=== PATIENT | male | born 1995 | race Two or more races ===

== ENCOUNTER 2019-03-05 19:45 | Emergency (ER) | payer SELFPAY ==
[2019-03-05] MEDS ORDERED: SODIUM CHLORIDE 1,000 ML IV STA (20:34)
--- NOTE | 2019-03-05 20:44 | PDOC ---
History of Present Illness - General Chief Complaint: Syncope/Near Syncope Stated Complaint: FALL/SYNCOPE Time Seen by Provider: 03/05/19 20:03 History Source: Patient, Family Exam Limitations: No Limitations - History of Present Illness Initial Comments: 03/05/19 20:38 Misael Willis is a 23M with no significant PMH presenting with syncope. 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 Reports feeling dizzy, and does not remember much after that until arriving at ED. Per EMS, patient's coworkers saw him unstable on his feet, did not hit head. Patient does not report prodromal sx, denies N/V, constipation/ diarrhea, chest pain/palpitations, SOB, fever, abdominal pain. Denies head injury/pain but has headache, no other injury on body. Has had previous episodes heat-related syncope. Reports he has "electrical problems with brain," but does not say that he has ever had seizures, rather describes them as 2min episodes of dizziness whenever he is agitated, 4-5 episodes of this in last year, does not say that current episode is like this. Past History - Past Medical History Allergies/Adverse Reactions: Allergies Allergy/AdvReac Type Severity Reaction Status Date / Time No Known Allergies Allergy Verified 03/05/19 20:40 Home Medications: Ambulatory Orders NK [No Known Home Medication] 03/05/19 Anemia: No Asthma: No Cancer: No Cardiac Disorders: No CVA: No COPD: No - Surgical History Gastric Stapling: Yes Review of Systems - Review of Systems Able to Perform ROS?: Yes Constitutional: Yes: Diaphoresis. No: Chills, Fever, Weakness HEENTM: No: Blurred Vision, Hearing Loss, Throat Pain Respiratory: No: Cough, Shortness of Breath Cardiac (ROS): Yes: Syncope. No: Chest Pain, Lightheadedness, Palpitations ABD/GI: No: Constipated, Diarrhea, Nausea, Vomiting : No: Burning, Dysuria, Discharge, Frequency, Flank Pain Musculoskeletal: No: Back Pain, Joint Stiffness Integumentary: No: Flushing, Rash Neurological: Yes: Headache. No: Numbness, Paresthesia, Weakness *Physical Exam - Physical Exam General Appearance: Yes: Nourished, Appropriately Dressed, Obese. No: Apparent Distress HEENT: positive: EOMI, GUILLERMO, Normal Voice, Symmetrical, Pharynx Normal, Hearing Grossly Normal. negative: Scleral Icterus (R), Scleral Icterus (L), Muffled/ Hoarse voice, Nasal Congestion, Rhinorrhea, Excessive drooling Neck: positive: Trachea midline, Supple. negative: Tender, Lymphadenopathy (R) , Lymphadenopathy (L) Respiratory/Chest: positive: Lungs Clear, Normal Breath Sounds. negative: Chest Tender, Respiratory Distress, Crackles, Rales, Rhonchi, Dullness Cardiovascular: positive: Regular Rhythm, Regular Rate. negative: Murmur Gastrointestinal/Abdominal: positive: Normal Bowel Sounds, Soft. negative: Tender, Organomegaly, Pulsatile Mass, Guarding, Rebound Musculoskeletal: positive: Normal Inspection. negative: Decreased Range of Motion Extremity: positive: Normal Capillary Refill, Normal Inspection, Normal Range of Motion. 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 Patient is otherwise healthy and working outside on a hot day, most concerning for dehydration-related syncope. Differential also includes seizure vs. acute intracranial process vs. dysarrthymia. Given no deficits on neuro exam, lakc of dizziness at this time, and no real seizure-like activity, unlikely to be neurological in origin. Denies hitting head or head pain, low concern for head injury, will not scan head. Getting CMP, CBC, and ECG to evaluate for electrolyte abnormality, dehydration, anemia, and dysarrhythmia. Giving 1L NS for rehydration. Will re-evaluate after fluids complete. 03/05/19 21:47 ECG NSR. Labs all WNL.Tolerating PO. Discharging home. *DC/Admit/Observation/Transfer Diagnosis at time of Disposition: Syncope Qualifiers: Syncope type: heat syncope Encounter type: initial encounter Qualified Code(s) : T67.1XXA - Heat syncope, initial encounter - Discharge Dispostion Disposition: HOME Condition at time of disposition: Improved Decision to Admit order: No - Referrals - Patient Instructions Additional Instructions: Today you were evaluated for fainting after a hot day outside, and it was likely because you were a little dehydrated. We gave you some saline by IV to help with dehydration. We did not find any problems in your labs. Please try to keep hydrated by drinking a lot of fluids, and trying to stay cool when you can. If you experience further dizziness or falls, as well as any new fevers, nausea, vomiting, changes to your vision, have trouble walking, have belly pain, or have any new or concerning symptoms, please return to an emergency room as soon as possible. Please follow-up with your doctor in the next week for further care. - Post Discharge Activity
[2019-03-05 20:54] VITALS: BMI 28.5
[2019-03-05 21:07] LABS: BASO % 0.7 % (0-2.0); EOS % 1.3 % (0-4.5); HEMATOCRIT 38.6 % (35.4-49); HEMOGLOBIN 12.6 GM/dL (11.7-16.9); LYMPH % 37.6 % (8-40); MCH 27.2 pg (25.7-33.7); MCHC 32.7 g/dl (32.0-35.9); MEAN CELL VOLUME 83.3 fl (80-96); MEAN PLT VOLUME 9.4 fl (7.5-11.1); NEUT % 52.4 % (42.8-82.8); PLATELET COUNT 181 K/MM3 (134-434); RBC 4.64 M/mm3 (4.00-5.60); RDW 15.8 % (11.9-15.9); WHITE BLOOD COUNT 6.3 K/mm3 (4.0-10.0)
[2019-03-05 21:37] LABS: BLOOD UREA NITROGEN 7.5 mg/dL (7-18); CREATININE 0.5 mg/dL (0.55-1.3); POTASSIUM 3.8 mmol/L (3.5-5.1)
[2019-03-05 21:38] LABS: ALBUMIN 3.8 g/dl (3.4-5.0); BILIRUBIN,TOTAL 0.4 mg/dL (0.2-1); TOT PROT 6.8 g/dl (6.4-8.2)
--- NOTE | 2019-03-05 21:48 | PDOC ---
Documentation entered by Candace Varma SCRIBE, acting as scribe for Nena Arevalo MD. Nena Arevalo MD: This documentation has been prepared by the Avani saavedra Brenda, SCRIBE, under my direction and personally reviewed by me in its entirety. I confirm that the documentation accurately reflects all work, treatment, procedures, and medical decision making performed by me. Attending Attestation - Resident Resident Name: Mike Hanson - ED Attending Attestation I have performed the following: I have examined & evaluated the patient, The case was reviewed & discussed with the resident, I agree w/resident's findings & plan, Exceptions are as noted - HPI HPI: 03/05/19 20:05 The patient is a 23 year old male, with no significant PMH who presents to the emergency department [facility] with dizziness and possible syncopal episode. 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 As per friend on the bedside, one of the co workers called [phone] when he noticed that the patient passed out. Patiently currently reports a mild headache. The patient denies chest pain, shortness of breath. Denies fever, chills, nausea , vomiting, diarrhea and constipation. Denies dysuria, frequency, urgency and hematuria. Allergies: NKA Past surgical history: Not reported Social history: Not reported - Physicial Exam PE: 03/05/19 21:46 GENERAL: +Diaphoretic. Well developed, well nourished. Awake and alert. No acute distress. HEENT: Normocephalic, atraumatic. PERRLA, EOMI. No conjunctival pallor. Sclera are non- icteric. Moist mucous membranes. Oropharynx is clear. NECK: Supple. Full ROM. No JVD. Carotid pulses 2+ and symmetric, without bruits. No thyromegaly. No lymphadenopathy. CARDIOVASCULAR: Regular rate and rhythm. No murmurs, rubs, or gallops. Distal pulses are 2+ and symmetric. PULMONARY: No evidence of respiratory distress. Lungs clear to auscultation bilaterally. No wheezing, rales or rhonchi. ABDOMINAL: Soft. Non-tender. Non-distended. No rebound or guarding. No organomegaly. Normoactive bowel sounds. MUSCULOSKELETAL Normal range of motion at all joints. No bony deformities or tenderness. No CVA tenderness. EXTREMITIES: No cyanosis. No clubbing. No edema. No calf tenderness. SKIN: Warm and dry. Normal capillary refill. No rashes. No jaundice. NEUROLOGICAL: Alert, awake, appropriate. Cranial nerves 2-12 intact. No deficits to light touch and temperature in face, upper extremities and lower extremities. No motor deficits in the in face, upper extremities and lower extremities. Normoreflexic in the upper and lower extremities. Normal speech. Toes are down- going bilaterally. Gait is normal without ataxia. PSYCHIATRIC: Cooperative. Good eye contact. Appropriate mood and affect. - Medical Decision Making 03/05/19 21:47 pt recieved IVF labs unremarkable ekg nsr @ 66 bpm,no brugada,no signs of ischemia imp vasovagel episode/dehydration/heat illness
[2019-03-05 21:58] VITALS: BP 136/80; PULSE 64; TEMP 97.3
--- NOTE | 2019-03-06 09:23 | EKG ---
Test Reason : Blood Pressure : / mmHG Vent. Rate : 066 BPM Atrial Rate : 066 BPM P-R Int : 130 ms QRS Dur : 088 ms QT Int : 424 ms P-R-T Axes : 043 044 037 degrees QTc Int : 444 ms POOR DATA QUALITY, INTERPRETATION MAY BE ADVERSELY AFFECTED NORMAL SINUS RHYTHM NORMAL ECG NO PREVIOUS ECGS AVAILABLE Confirmed by PRINCESS MORGAN MD ([id number]) on 03/06/2019 9:23:00 AM Referred By: Confirmed By:PRINCESS MORGAN MD
== END 2019-03-05 21:59 | disposition home or self-care (01) ==
LOC: JER 19:45 → EDSEX 19:45 → JER 21:59
PROC: 3E0337Z Introduction of Electrolytic and Water Balance Substance into Peripheral Vein, Percutaneous Approach (ICD-10-PCS; principal; 2019-03-05)
DX: T67.1XXA Heat syncope, initial encounter (principal); W18.39XA Other fall on same level, initial encounter; Y93.89 Activity, other specified; Y92.524 Gas station as the place of occurrence of the external cause; Y99.0 Civilian activity done for income or pay
CPT/HCPCS: 36415; 80053; 85025; 93005; 93010; 99284-25; J7030

== ENCOUNTER 2022-04-14 17:53 | Emergency (ER) | payer OTHER ==
[2022-04-14 17:58] VITALS: BP 119/84; PULSE 79; RESP 18; TEMP 97.8; BMI 29.4
[2022-04-14] MEDS ORDERED: ACETAMINOPHEN 500 MG TABLET (FP) PO ONE (19:40)
[2022-04-14] MEDS ORDERED: IBUPROFEN 600 MG TABLET (FP) PO ONE ×2 (19:40→20:03)
[2022-04-14] MEDS ORDERED: ACETAMINOPHEN 500 MG TABLET (FP) ONE (20:03)
== END 2022-04-14 22:01 | disposition home or self-care (01) ==
LOC: JERFT 17:53 → JER 17:53 → JERFT 22:01
DX: M25.562 Pain in left knee (principal)
CPT/HCPCS: 73562-TC-LT-FY; 73610-TC-LT-FY; 99284-25